=== PATIENT | male | born 1980 | race Caucasian/White ===

== ENCOUNTER 2020-03-08 11:21 | Outpatient (REF) | payer OTHER, SELFPAY ==
[2020-03-08 11:43] LABS: COVID-19 Test Negative (Negative)
== END 2020-03-08 11:22 | disposition home or self-care (01) ==
LOC: HO.LAB 11:21
PROVIDERS: PCP Physician Assistant; Visit Provider Internal Medicine
DX: Z20.828 Contact with and (suspected) exposure to other viral communicable diseases (principal)
CPT/HCPCS: 87635; C9803

== ENCOUNTER 2020-03-12 09:25 | Outpatient (REF) | payer OTHER, SELFPAY ==
[2020-03-12 09:42] LABS: COVID-19 Test Positive (Negative)
== END 2020-03-12 09:26 | disposition home or self-care (01) ==
LOC: HO.LAB 09:25
PROVIDERS: Visit Provider Internal Medicine
DX: Z20.828 Contact with and (suspected) exposure to other viral communicable diseases (principal)
CPT/HCPCS: 87635; C9803

== ENCOUNTER 2020-03-12 13:29 | Outpatient (REF) | payer OTHER, SELFPAY | END 2020-03-12 13:30 | disposition home or self-care (01) | LOC: HO.LAB 13:29 | PROVIDERS: Visit Provider Internal Medicine | DX: Z20.828 Contact with and (suspected) exposure to other viral communicable diseases (principal) | CPT/HCPCS: C9803; U0003 ==

== ENCOUNTER → 2020-03-28 13:10 | Outpatient (BNVA) | payer OTHER, SELFPAY | PROVIDERS: PCP Physician Assistant; Visit Provider Physician Assistant | DX: Z76.89 Persons encountering health services in other specified circumstances (principal) ==

== ENCOUNTER → 2020-03-29 08:15 | Outpatient (BNVA) | payer OTHER, SELFPAY | PROVIDERS: PCP Physician Assistant; Visit Provider Surgery | DX: Z76.89 Persons encountering health services in other specified circumstances (principal) ==

== ENCOUNTER 2020-03-30 08:56 | Outpatient (REF) | payer OTHER, SELFPAY ==
[2020-04-02 09:13] LABS: H Pylori Breath Test NOT DETECTED (NOT DETECTED)
== END 2020-03-30 08:57 | disposition home or self-care (01) ==
LOC: HO.LNP 08:56
PROVIDERS: PCP Physician Assistant; Referring Provider Physician Assistant; Visit Provider Surgery
DX: Z11.0 Encounter for screening for intestinal infectious diseases (principal)
CPT/HCPCS: 83013

== ENCOUNTER → 2020-04-17 08:17 | Outpatient (BNVA) | payer OTHER, SELFPAY | PROVIDERS: PCP Physician Assistant; Visit Provider Dietitian, Registered | DX: Z76.89 Persons encountering health services in other specified circumstances (principal) ==

== ENCOUNTER 2020-04-18 10:20 | Outpatient (REF) | payer OTHER, SELFPAY ==
--- NOTE | 2020-04-18 10:25 | XR_ITS ---
EXAMINATION: XR CHEST CLINICAL INFORMATION: Morbid obesity. COMPARISON: None TECHNIQUE: 2 views of the chest were obtained. FINDINGS: No significant abnormality is noted involving the heart, lungs, mediastinum, bony thorax or soft tissues. XR/XR chest 2V IMPRESSION: No acute cardiopulmonary process.
--- NOTE | 2020-04-18 10:25 | US_ITS ---
EXAMINATION: US COMPLETE ABDOMEN WITH LIVER ELASTOGRAPHY CLINICAL INFORMATION: Morbid obesity secondary to excess calories. COMPARISON: None. TECHNIQUE: Real-time imaging of the abdominal viscera. Noninvasive ultrasound liver fibrosis assessment is performed using Chantelle ElastPQ point quantification shear wave elastography (pSWE) with a 5 MHz transducer. Multiple elastography samples are obtained. FINDINGS: PANCREAS: Visualized portions unremarkable. The tail is obscured by bowel gas shadowing. ABDOMINAL AORTA: Unremarkable. INFERIOR VENA CAVA: Unremarkable. LIVER: Diffuse increased echotexture without focal abnormality. The right lobe measures 19.1 cm in length. The left lobe measures 11.2 cm in length. Shear wave elastography provides a median stiffness of 1.42 m/s (reference: normal median stiffness is 0.81 - 1.22 m/s). The IQR/median stiffness to assess sampling precision is 0.11 (reference: optimal IQR/median stiffness is under 0.3). GALLBLADDER: Unremarkable. COMMON BILE DUCT: Normal in caliber measuring 0.6 cm in diameter. RIGHT KIDNEY: 12.7 cm. Unremarkable. LEFT KIDNEY: 13.7 cm. Unremarkable. SPLEEN: 12.2 cm. Unremarkable. FREE FLUID: None. US/US abdomen comp w elastography IMPRESSION: 1. Hepatic steatosis. 2. Elastography: Fibrosis the stage F2/3: Mild to moderate.
--- NOTE | 2020-04-18 10:25 | FL_ITS ---
EXAMINATION: XR GI SERIES CLINICAL INFORMATION: Obesity COMPARISON: None TECHNIQUE: Upper GI was performed using thin and thick barium and effervescent granules FINDINGS: Esophageal motility is normal. There is a small sliding hiatal hernia. There is mild gastroesophageal reflux. The esophagus is otherwise unremarkable. The stomach and duodenum are normal-appearing. No fold thickening, mass, ulcer or stricture is seen. FLUOROSCOPY TIME: 0.7 minutes DOSE AREA PRODUCT: 9.8 Smith per centimeter squared. 19 saved fluoroscopic images. FL/FL upper GI series IMPRESSION: Small sliding-type hiatal hernia and mild gastroesophageal reflux.
== END 2020-04-18 10:21 | disposition home or self-care (01) ==
LOC: HO.US 10:20
PROVIDERS: PCP Physician Assistant; Visit Provider Surgery
DX: Z01.818 Encounter for other preprocedural examination (principal); E66.01 Morbid (severe) obesity due to excess calories; K21.9 Gastro-esophageal reflux disease without esophagitis
CPT/HCPCS: 71046; 74240; 76705; 76981

== ENCOUNTER → 2020-04-25 08:35 | Outpatient (BNVA) | payer OTHER, SELFPAY | PROVIDERS: PCP Physician Assistant; Visit Provider Surgery | DX: Z76.89 Persons encountering health services in other specified circumstances (principal) ==

== ENCOUNTER → 2020-05-14 08:11 | Outpatient (BNVA) | payer OTHER, SELFPAY | PROVIDERS: PCP Physician Assistant; Visit Provider Dietitian, Registered ==

== ENCOUNTER → 2020-05-16 08:19 | Outpatient (BNVA) | payer OTHER, SELFPAY | PROVIDERS: PCP Physician Assistant; Visit Provider Surgery | DX: Z76.89 Persons encountering health services in other specified circumstances (principal) ==

== ENCOUNTER → 2020-05-29 08:09 | Outpatient (BNVA) | payer OTHER, SELFPAY | PROVIDERS: PCP Physician Assistant; Visit Provider Dietitian, Registered ==

== ENCOUNTER → 2020-06-13 08:14 | Outpatient (BNVA) | payer OTHER, SELFPAY | PROVIDERS: PCP Physician Assistant; Visit Provider Surgery ==

== ENCOUNTER 2021-06-18 06:18 | Outpatient (REF) | payer OTHER, SELFPAY ==
--- NOTE | ~2021-06-18 | XR_ITS ---
EXAMINATION: XR CHEST CLINICAL INFORMATION: R07.89 - Other chest pain COMPARISON: Chest radiographs 04/18/2020 TECHNIQUE: 2 views of the chest were obtained. FINDINGS: The lungs are clear. There is no airspace consolidation, groundglass opacity, or effusion. No pneumothorax or pleural reaction. The costophrenic sulci are clear. The heart is normal in size. The hilar and mediastinal contours are normal. There are degenerative changes again noted thoracic spine. XR/XR chest 2V IMPRESSION: Lungs clear. No acute intrathoracic disease.
[2021-06-18 07:32] LABS: Hematocrit 47.5 % (42.0-52.0); Hemoglobin 15.3 g/dl (14.0-18.0); Mean Corpuscular HGB Conc 32.2 g/dl (31.0-36.0); Mean Corpuscular Hemoglobin 27.5 pg (27.0-33.0); Mean Corpuscular Volume 85.3 fL (80.0-98.0); Mean Platelet Volume 10.2 fL (9.4-12.4); Platelet Count 354 X10*3/uL (160-400); Red Blood Count 5.57 X10*6/uL (4.60-5.80); Red Cell Distribution Width 12.7 % (11.0-16.0)
[2021-06-18 07:34] LABS: Estimated Average Glucose 137 mg/dL; Hemoglobin A1c % 6.4 %
[2021-06-18 08:07] LABS: TSH reflex Free T4 1.93 uIU/mL (0.32-4.0)
[2021-06-18 08:08] LABS: Alanine Aminotransferase 23 U/L (0-40); Albumin Level 4.1 g/dL (3.5-5.0); Alkaline Phosphatase 86 U/L (39-117); Anion Gap 13 (12-20); Aspartate Amino Transferase 17 U/L (5-37); Bilirubin Total 0.6 mg/dL (0.0-1.0); Blood Urea Nitrogen 22 mg/dL (9-16); Calcium 9.6 mg/dL (8.4-10.2); Carbon Dioxide 26 mmol/L (22-29); Chloride 104 mmol/L (96-108); Cholesterol 239 mg/dL; Estimated Glomerular Filt Rate > 60; Glucose Fasting 141 mg/dL (60-99); HDL Cholesterol 38 mg/dL; LDL Cholesterol Calculated 181 mg/dl; Potassium 4.7 mmol/L (3.3-5.1); Sodium 138 mmol/L (135-145); Total Protein 7.6 g/dL (6.5-8.0); Triglycerides 101 mg/dL
[2021-06-18 08:26] LABS: Creatinine Urine 157.89 mg/dL; Microalbum/Creatinine Ratio Ur 97.5 ug/mg cr
== END 2021-06-18 06:19 | disposition home or self-care (01) ==
LOC: HO.LAB 06:18
PROVIDERS: PCP Physician Assistant; Visit Provider Physician Assistant
DX: R07.89 Other chest pain (principal); I10 Essential (primary) hypertension; Z13.1 Encounter for screening for diabetes mellitus; Z13.220 Encounter for screening for lipoid disorders
CPT/HCPCS: 36415; 71046; 80053; 80061; 82043; 83036; 84443; 85027

== ENCOUNTER → 2021-07-17 13:52 | Outpatient (REF) | payer OTHER, SELFPAY | LOC: HO.SL 13:52 | PROVIDERS: PCP Physician Assistant; Visit Provider Physician Assistant | DX: G47.33 Obstructive sleep apnea (adult) (pediatric) (principal); E66.01 Morbid (severe) obesity due to excess calories | CPT/HCPCS: 95806 ==

== ENCOUNTER 2022-11-03 06:47 | Outpatient (REF) | payer OTHER, SELFPAY ==
[2022-11-03 07:25] LABS: Estimated Average Glucose 278 mg/dL; Hemoglobin A1c % 11.3 %
[2022-11-03 07:47] LABS: Alanine Aminotransferase 47 U/L (0-40); Alkaline Phosphatase 93 U/L (39-117); Anion Gap 15 (12-20); Aspartate Amino Transferase 26 U/L (5-37); Bilirubin Total 0.7 mg/dL (0.0-1.0); Blood Urea Nitrogen 17 mg/dL (9-16); Calcium 9.3 mg/dL (8.4-10.2); Carbon Dioxide 24 mmol/L (22-29); Chloride 103 mmol/L (96-108); Estimated Glomerular Filt Rate > 60; Glucose Fasting 326 mg/dL (60-99); Potassium 4.5 mmol/L (3.3-5.1); Sodium 137 mmol/L (135-145); Total Protein 7.6 g/dL (6.5-8.0)
== END 2022-11-03 06:48 | disposition home or self-care (01) ==
LOC: HO.LAB 06:47
PROVIDERS: PCP Physician Assistant; Visit Provider Physician Assistant
DX: R73.09 Other abnormal glucose (principal)
CPT/HCPCS: 36415; 80053; 83036

== ENCOUNTER 2022-11-13 11:06 | Outpatient (AMB) | payer OTHER, SELFPAY ==
[2022-11-13 11:08] VITALS: BP 136/82; PULSE 81; O2SAT 98; BMI 43.0
--- NOTE | 2022-11-13 11:08 | MHC.PC.OV ---
Vital Signs 11/13/22 11:08 Height 6 ft 1 in Weight 326 lb BMI 43.0 BP 136/82 Blood Pressure Location Lt brachial Position Sitting Pulse 81 Pulse Source Pulse Oximeter Pulse Oximetry (%) 98 Oxygen Delivery Method Room Air Intake Visit Reasons: Follow up on labs Allergies hydrochlorothiazide Adverse Reaction (Intermediate, Verified 11/13/22 11:09) Dizziness Tobacco use date assessed: 11/13/22 Dental Screening Dental Screen Date: 11/13/22 Did you have a dental visit in the last 12 months?: Yes Did you have a dental problem in the last 6 months where you did not have access to dental care?: No Was dental information given to patient?: Patient has dentist HPI Follow up on labs HPI Details Patient is a 42-year-old male here today for follow-up visit. Patient's past medical history significant for obesity, borderline high cholesterol, hyperlipidemia . Patient has been experiencing headaches, blurred vision, polydipsia and polyuria. Was sent for labs and noted hyperglycemia on A1c above 11. Has been restarted on metformin a 1000 b.i.d.. He reports since starting higher dose metformin a 1000 b.i.d. is 30 vision his resolved and is polyuria polydipsia also has resolved. He reports having cramps in his calves which he is concerned about. Also reviewed previous labs and noted a elevated total cholesterol thus will recheck fasting lipid panel and consider statin therapy if LDL above 100. .. Hypertension: Blood pressure acceptable today in office. Was on lisinopril 20 mg in the past though was experiencing hypo tension and dizziness. Reduce his dose down to 10 mg though has unfortunately stopped taking the medication altogether. Advised to restart lisinopril 5 mg for renal protection. [facility] Medical History Morbid obesity Surgical History No pertinent past surgical history Family History Father Hyperlipidemia Mother Hypertension Hyperlipidemia Mother Hypertension Hyperlipidemia Son No problems noted. Daughter No problems noted. Daughter No problems noted. Daughter No problems noted. 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 1. Little interest or pleasure in doing things: not at all 2. Feeling down, depressed, or hopeless: not at all 3. Trouble falling or staying asleep, or sleeping too much: not at all 4. Feeling tired or having little energy: not at all 5. Poor appetite or overeating: not at all 6. Feeling bad about yourself - or that you are a failure or have let yourself or your family down: not at all 7. Trouble concentrating on things, such as reading the newspaper or watching television: not at all 8. Moving or speaking so slowly that other people could have noticed. Or the opposite - being so fidgety or restless that you have been moving around a lot more than usual: not at all 9. Thoughts that you would be better off or of hurting yourself in some way: not at all Total score: 0 Depression Screening Interpretation: Negative Source: Developed by Drs. Ivan Gray, Cassidy Nolan, Redd Issa and colleagues, with an educational jak from [employer]. Thrive Questionnaire Date Thrive assessed: 11/13/22 I am a: Patient What is your living situation today?: I have a steady place to live Within the past 12 months, did the food you bought not last and you didn't have the money to get more?: Never true Within the past 12 months, did you worry whether your food would run out before you got money to buy more?: Never true Do you have trouble paying for medicines?: No Do you have trouble getting transportation to medical appointments?: No Do you have trouble paying your heating and electricity bill?: No Do you have trouble taking care of your child, family member or friend?: No Do you have trouble with day-to-day activities such as bathing, preparing meals, shopping, managing finances, etc.?: No Are you currently unemployed and looking for a job?: No Are you interested in more education?: No Currently or been in a relationship where the following occur: no concerns reported AUDIT C Alcohol Use Questionnaire (AUDIT-C) 1. How often do you have a drink containing alcohol?: Never 3. How often do you have six or more drinks on one occasion?: Never Total Score: 0 JELANI-7 AMB Questionnaire JELANI-7 Date JELANI - 7 assessed: 11/13/22 Feeling nervous, anxious, or on edge: 0 = Not at all Not being able to stop or control worryin = Not at all Worrying too much about different things: 0 = Not at all Trouble relaxin = Not at all Being so restless that it is hard to sit still: 0 = Not at all Becoming easily annoyed or irritable: 0 = Not at all Feeling afraid as if something awful might happen: 0 = Not at all Total JELANI-7 score (0-4 normal; 5-9 mild; 10-14 moderate; 15-21 severe): 0 Source: Developed by Drs. Ivan Gray, Cassidy Nolan, Redd Issa and colleagues, with an educational jak from [employer]. JELANI-7 Assessment Billing JELANI-7 Assessment Tool: JELANI-7 Assessment 37289 Review of Systems Const Denies headache(s) Eyes Denies loss of vision ENT Denies vertigo, Denies dizziness, Denies headache(s) and Denies sore throat Card Denies chest pain, Denies leg edema and Denies lightheadedness Resp Denies cough, Denies hemoptysis and Denies wheezing GI Denies abdominal pain, Denies melena, Denies constipation, Denies diarrhea and Denies vomiting Denies dysuria, Denies urinary frequency and Denies urinary urgency Musc Details: + myalgias and calfs and thighs Denies arthralgias, Denies joint swelling, Denies numbness and Denies tingling Neuro Denies Abnormal speech present, Denies behavioral changes, Denies vertigo, Denies dizziness, Denies headache(s), Denies loss of vision, Denies memory loss, Denies numbness and Denies tingling Psych Denies anxiety, Denies behavioral changes, Denies depression, Denies memory loss and Denies panic attacks Trey/Lymph Denies easy bleeding and Denies easy bruising Aller/Immun Denies wheezing Physical exam (Primary Care) Vital Signs: Last Vital Signs Pulse 81 11/13/22 11:08 BP 136/82 11/13/22 11:08 Pulse Ox 98 11/13/22 11:08 Oxygen Delivery Method Room Air 11/13/22 11:08 BMI result Body Mass Index 43.0 BMI Assessment/Plan discussion: High Tobacco/Smoking Status: Tobacco use Status Tobacco use date assessed 11/13/22 11/13/22 11:12 Patient Tobacco Use Status Never used Tobacco 11/13/22 11:12 e-Cigarette/Vaping Use Never Used 11/13/22 11:12 PHQ-9: PHQ-9 Score PHQ-9: Total score 0 11/13/22 11:20 Depression Screening Interpretation: Negative Thrive Assessment: Date of Thrive Assessment Date Thrive assessed 11/13/22 11/13/22 11:12 Currently or been in a relationship where the following occur: no concerns reported Const Other: Morbidly obese General: no acute distress, alert and awake Nutritional Appearance: well nourished Orientation/consciousness: oriented to person, oriented to place and oriented to time HENMT Ears: TM's normal bilaterally General nose exam: Normal nasal mucous membranes and turbinates present Eyes Conjunctivae: conjunctivae normal Sclerae: sclerae normal Pupils: Equal, round and reactive pupils present Neck Neck: Yes no lymphadenopathy and Yes no JVD Thyroid: Thyroid normal Carotids: no bruits Resp Effort & Inspection: normal respiratory effort and not tachypneic Auscultation: no crackles, no rales, no rhonchi and no wheezes Cardio Rate: regular rate Rhythm: regular rhythm Heart sounds: no murmurs and normal S1 and S2 GI Palpation (GI): Soft to palpation, nontender, no hepatomegaly and no splenomegaly Auscultation: normal bowel sounds Skin General skin exam: no rashes or lesions noted and dry skin Neuro General: oriented to person, oriented to place and oriented to time Cranial nerves: Yes Equal, round and reactive pupils present Speech: No Abnormal speech present Gait exam (Neuro): Normal gait present Motor exam (neuro): no tremor noted Extrem Right upper extremity: full ROM Left upper extremity: full ROM Right lower extremity: full ROM; no edema Left lower extremity: full ROM; no edema Psych Mental Status: mental status grossly normal Speech and movement: Normal speech and movement present Affect: normal affect Attitude: cooperative Thought process: Normal thought process present Assessment and Plan Assessment & Plan (1) DMII (diabetes mellitus, type 2): Code(s): E11.9 - Type 2 diabetes mellitus without complications Qualifiers: Diabetes mellitus complication status: with hyperglycemia Diabetes mellitus correction insulin use: without correction use Qualified Code(s): E11.65 - Type 2 diabetes mellitus with hyperglycemia Plan: Patient has uncontrolled type 2 diabetes. Recently increased his metformin to a 1000 b.i.d.. For now will hold off on injectable therapy or insulin. He will work extensively on lifestyle modifications to help manage his diabetes. He is willing to talk with a dietitian about diabetic diet. Goal A1c is to be below 7.0 Will refer to Ophthalmology for diabetic eye exam (2) Myalgia: Code(s): M79.10 - Myalgia, unspecified site Plan: Likely related to his diabetes. Will supply him with magnesium oxide to use at night for muscle cramps in legs. (3) HLD (hyperlipidemia): Code(s): E78.5 - Hyperlipidemia, unspecified Qualifiers: Hyperlipidemia type: mixed hyperlipidemia Qualified Code(s): E78.2 - Mixed hyperlipidemia Plan: Most recent fasting lipid panel showing elevated total cholesterol. Will continue to work on lifestyle modifications to reduce his high cholesterol foods. Again will try to set him up with dietitian. Will recheck lipid panel before next visit in if LDL above 100 will strongly consider starting statin therapy. (4) JELANI (generalized anxiety disorder): Code(s): F41.1 - Generalized anxiety disorder Plan: Patient does report having a lot of stress and anxiety which he attributes as a manifestation to his chest pain and neck pain. He is interested in speaking with a mental health therapist about nonpharmacological ways to reduce his stress and anxiety. Will refer to counseling (5) Morbid obesity: Code(s): E66.01 - Morbid (severe) obesity due to excess calories Plan: Patient does understand his BMI is well over 40 and will continue working on being more physically active and adapting to better eating habits to reduce his weight. Orders: Orders Comprehensive Carbon. Panel Fast Today R73.09 - Other abnormal glucose Complete Blood Count Auto Diff Today R73.09 - Other abnormal glucose Lipid Panel Today E78.2 - Mixed hyperlipidemia Magnesium Today E11.65 - Type 2 diabetes mellitus with hyperglycemia Complete Blood Count no Diff Today E11.65 - Type 2 diabetes mellitus with hyperglycemia Referrals Nutrition/Dietitian Referral E11.65 - Type 2 diabetes mellitus with hyperglycemia Counseling Referral F41.1 - Generalized anxiety disorder Ophthalmology Referral E11.65 - Type 2 diabetes mellitus with hyperglycemia Medications: New magnesium oxide 400 mg PO DAILY 30 days 30 tabs 0RF M79.10 - Myalgia, unspecified site lisinopril 5 mg PO DAILY 90 days 90 tabs 1RF I10 - Essential (primary) hypertension Discontinued atomoxetine (Strattera) Discontinued Reason: Doctor's Order 40 mg PO DAILY 14 days 14 caps 0RF F98.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 with onset usually occurring in childhood and adolescence atomoxetine (Strattera) Discontinued Reason: Doctor's Order 80 mg PO DAILY 30 days 30 caps 0RF F98.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 with onset usually occurring in childhood and adolescence metformin Discontinued Reason: Doctor's Order 500 mg PO DAILY 30 days 30 tabs 2RF R73.09 - Other abnormal glucose lisinopril Discontinued Reason: Doctor's Order 10 mg PO DAILY 30 tabs 2RF I10 - Essential (primary) hypertension Coding Level of Care Code Est Pt Level 4 (85648) Diagnoses DMII (diabetes mellitus, type 2) E11.65 Diabetes mellitus complication status: with hyperglycemia Diabetes mellitus correction insulin use: without correction use Myalgia M79.10 HLD (hyperlipidemia) E78.2 Hyperlipidemia type: mixed hyperlipidemia JELANI (generalized anxiety disorder) F41.1 Morbid obesity E66.01 Additional Codes JELANI-7 Assessment Billing - JELANI-7 Assessment Tool: JELANI-7 Assessment 03961 ([id number])
== END 2022-11-13 11:49 | disposition home or self-care (01) ==
PROVIDERS: PCP Physician Assistant; Visit Provider Physician Assistant
DX: E11.65 Type 2 diabetes mellitus with hyperglycemia (principal); E66.01 Morbid (severe) obesity due to excess calories; Z68.41 Body mass index [BMI] 40.0-44.9, adult; M79.10 Myalgia, unspecified site; E78.2 Mixed hyperlipidemia; F41.1 Generalized anxiety disorder
CPT/HCPCS: 99214

== ENCOUNTER 2022-11-25 09:23 | Outpatient (AMB) | payer OTHER, SELFPAY ==
--- NOTE | 2022-11-25 09:54 | MHC.AMNUTRGE ---
Intake VS Expanded 11/25/22 09:55 11/25/22 09:58 Height 6 ft 1 in 6 ft 1 in Weight 324 lb 11.854 oz 325 lb BMI 42.8 42.9 Intake Visit Reasons: DM Allergies hydrochlorothiazide Adverse Reaction (Intermediate, Verified 11/13/22 11:09) Dizziness HPI Nutrition Presentation Details Pt presents for MNT for T2DM Patient reports taking metformin a 1000 mg twice a day Patient reports working on diet modifications, reports trying 12 hour fast for 2 weeks however reports challenges with reducing portions once fasting is over or if including foods before the fasting is over. Food frequency questionnaire Fruits: 2-3 per day Protein: 10-12 oz per day including a via radio protein (beef, fish, eggs, poultry and processes meats) eating out 0 to once per week Dairy: 3 to 4 times a day Vegetables: 1-2 servings per day Starches: Greater than 20 servings per day Beverages: Reports drinking water and choosing lower sugar beverages about 60-65 oz per day Fried foods 0 to once per week EFV-Yuyzfzp-Jd.Jeor Equation Height 6 ft 1 in Weight 325 lb Resting Metabolic Rate 2425.02 Calculated Activity Level Mild Activity Calories Needed to Maintain Weight 3334.40 Diagnosis Nutrition problem #1 food nutri know defi As related to (etiology) #1 diagnosis As evidenced by (sign/symptom) #1 high BMI (42.9 on 11/25/22) Most Recent Diabetes Results: Microalb/Creat Ratio 97.5 ug/mg cr 06/18/21 Cholesterol 239 mg/dL 06/18/21 HDL Cholesterol 38 mg/dL 06/18/21 Triglycerides 101 mg/dL 06/18/21 Creatinine 1.26 mg/dL (0.5-1.4) 11/03/22 Blood Urea Nitrogen 17 mg/dL (9-16) H 11/03/22 Sodium 137 mmol/L (135-145) 11/03/22 Potassium 4.5 mmol/L (3.3-5.1) 11/03/22 Chloride 103 mmol/L (96-108) 11/03/22 Carbon Dioxide 24 mmol/L (22-29) 11/03/22 Calcium 9.3 mg/dL (8.4-10.2) 11/03/22 AST 26 U/L (5-37) 11/03/22 ALT 47 U/L (0-40) H 11/03/22 Total Protein 7.6 g/dL (6.5-8.0) 11/03/22 Albumin 4.0 g/dL (3.5-5.0) 11/03/22 [facility] Medical History Morbid obesity Surgical History No pertinent past surgical history Family History Father Hyperlipidemia Mother Hypertension Hyperlipidemia Mother Hypertension Hyperlipidemia Son No problems noted. Daughter No problems noted. Daughter No problems noted. Daughter No problems noted. 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 Cognitive needs: No Hearing needs: No Vision needs: No Assessment & Plan Assessment & Plan (1) DMII (diabetes mellitus, type 2): Code(s): E11.9 - Type 2 diabetes mellitus without complications Qualifiers: Diabetes mellitus terminal manager insulin use: without mcfp use Diabetes mellitus complication status: with hyperglycemia Qualified Code(s): E11.65 - Type 2 diabetes mellitus with hyperglycemia (2) Morbid obesity: Code(s): E66.01 - Morbid (severe) obesity due to excess calories Plan: used wt: 148 kg Est kcal needs as per MSJ: 3300 (40% carb, 30% protein/fat) Est fluid needs as per 25-30 ml/d: 3693 Est prot per day as per 1 g/kg bw: 148 Recommend fiber intake : 8-10 g per day and gradually increase to 25-28 g per day for women and 35-38 g for men or as tolerated Recommend sodium intake per day : less than 1500 mg less than 2000 mg Educated patient on: ( R = reviewed V = verbalizes understanding N/R = needs review N/A = not applicable Food sources of carbohydrate, adequate serving sizes and its role in various health conditions: R Differences between complex carbohydrates a simple carbohydrates, role of fiber in diet: R Differences between types of fats and role in diet (mono on saturated fat fatty acids, saturated fatty acids, trans fats): R Food sources of sodium in salt and healthy modifications for heart health in kidney health: R Vitamins and minerals: R Healthy plate method concept: R Physical activity: Benefits a precaution: R Hypoglycemia protocol (rule of 15): R Dietary prevention of Hyperglycemia: R Patient Instructions: Practice mindful eating Reduce sugar in beverages Work on reducing your carbohydrates to 80 g at mealtime following healthy plate method Coding Level of Care Code Nutr Indiv Intake (90313) Diagnoses DMII (diabetes mellitus, type 2) E11.65 Diabetes mellitus terminal manager insulin use: without terminal manager use Diabetes mellitus complication status: with hyperglycemia Morbid obesity E66.01 Time Spent (min) 30
[2022-11-25 09:55] VITALS: BMI 42.8
[2022-12-01 11:30] VITALS: BMI 42.9
== END 2022-11-25 10:31 | disposition home or self-care (01) ==
PROVIDERS: PCP Physician Assistant; Visit Provider Dietitian, Registered
DX: E11.65 Type 2 diabetes mellitus with hyperglycemia (principal); E66.01 Morbid (severe) obesity due to excess calories

== ENCOUNTER → 2022-11-25 09:23 | Outpatient (BNVA) | payer OTHER, SELFPAY | PROVIDERS: PCP Physician Assistant; Visit Provider Dietitian, Registered | DX: E11.65 Type 2 diabetes mellitus with hyperglycemia (principal); E66.01 Morbid (severe) obesity due to excess calories; Z68.41 Body mass index [BMI] 40.0-44.9, adult; Z79.84 Long term (current) use of oral hypoglycemic drugs; Z71.3 Dietary counseling and surveillance | CPT/HCPCS: 97802 ==

== ENCOUNTER 2022-12-15 06:15 | Outpatient (REF) | payer OTHER, SELFPAY ==
[2022-12-15 06:37] LABS: MANUAL DIFF FLAG NO
[2022-12-15 08:21] LABS: Basophils Percent Auto 0.4 % (0-2); Eosinophils Absolute Auto 0.1 X10*3/uL (0.0-0.4); Eosinophils Percent Auto 1.4 % (0-4); Hematocrit 43.4 % (42.0-52.0); Imm Gran Abs Auto 0.02 X10*3/uL (0.00-0.03); Imm Gran Pct Auto 0.3 % (0.0-0.4); Lymphocytes Absolute Auto 2.1 X10*3/uL (1.2-4.9); Lymphocytes Percent Auto 27.4 % (20-40); Mean Corpuscular HGB Conc 32.3 g/dl (31.0-36.0); Mean Corpuscular Hemoglobin 27.6 pg (27.0-33.0); Mean Corpuscular Volume 85.6 fL (80.0-98.0); Mean Platelet Volume 10.9 fL (9.4-12.4); Monocytes Absolute Auto 0.6 X10*3/uL (0.1-1.2); Monocytes Percent Auto 7.2 % (2-11); Neutrophils Absolute Auto 4.9 x10*3/uL (2.0-8.3); Neutrophils Percent Auto 63.3 % (45-73); Platelet Count 332 X10*3/uL (160-400); Red Blood Count 5.07 X10*6/uL (4.60-5.80); Red Cell Distribution Width 12.7 % (11.0-16.0); White Blood Count 7.8 X10*3/uL (4.8-10.8)
[2022-12-15 09:01] LABS: Alanine Aminotransferase 22 U/L (0-40); Albumin Level 3.9 g/dL (3.5-5.0); Alkaline Phosphatase 76 U/L (39-117); Anion Gap 12 (12-20); Aspartate Amino Transferase 14 U/L (5-37); Bilirubin Total 0.4 mg/dL (0.0-1.0); Blood Urea Nitrogen 20 mg/dL (9-16); Calcium 9.4 mg/dL (8.4-10.2); Carbon Dioxide 23 mmol/L (22-29); Chloride 110 mmol/L (96-108); Cholesterol 198 mg/dL (<200); Estimated Glomerular Filt Rate > 60; Glucose Fasting 111 mg/dL (60-99); HDL Cholesterol 33 mg/dL (>40); LDL Cholesterol Calculated 149 mg/dL (<100); Magnesium 2.2 mg/dL (1.6-2.6); Potassium 4.6 mmol/L (3.3-5.1); Sodium 140 mmol/L (135-145); Total Protein 7.3 g/dL (6.5-8.0); Triglycerides 81 mg/dL (<150)
== END 2022-12-15 06:16 | disposition home or self-care (01) ==
LOC: HO.LAB 06:15
PROVIDERS: PCP Physician Assistant; Visit Provider Physician Assistant
DX: E11.65 Type 2 diabetes mellitus with hyperglycemia (principal); E78.2 Mixed hyperlipidemia
CPT/HCPCS: 36415; 80053; 80061; 83735; 85025; 85027

== ENCOUNTER 2023-01-28 11:36 | Outpatient (AMB) | payer OTHER, SELFPAY ==
--- NOTE | 2023-01-28 11:38 | MHC.PC.OV ---
Vital Signs 01/28/23 11:39 Height 6 ft 1 in Weight 310 lb BMI 40.9 BP 110/74 Blood Pressure Location Lt brachial Position Sitting Respiration 17 Pulse 59 Pulse Source Pulse Oximeter Pulse Oximetry (%) 98 Oxygen Delivery Method Room Air Intake Visit Reasons: discuss lab results Claims Adjuster Required: No Accompanied by: Self / Same As Patient Allergies hydrochlorothiazide Adverse Reaction (Intermediate, Verified 01/28/23 12:00) Dizziness Medication List - Last Reconciled 01/28/23 by Demar Guzman PA-C atorvastatin 10 mg PO BEDTIME 90 days ibuprofen 600 mg PO Q8H PRN lisinopril 5 mg PO DAILY 90 days metformin 1,000 mg PO BID 30 days Tobacco use date assessed: 11/13/22 HPI discuss lab results HPI Details Patient is a 42-year-old male here today for follow-up visit. Patient's past medical history significant for obesity, borderline high cholesterol, hyperlipidemia . Type 2 diabetes: . Was sent for labs and noted hyperglycemia on A1c above 11. Has been restarted on metformin a 1000 b.i.d.. Has been making lifestyle changes in his diet. Has been able to lose 15 lb over the last 2 months. PLAN: Reduce his metformin to 500 mg daily and start OZempic weekly injection for added benefit of weight loss. Hyperlipidemia: Most recent lipid panel showing elevated LDL for his cardiovascular risk. Has been started on statin therapy without any side effect. Will recheck fasting lipid panel with goal LDL to be below 100 .. Hypertension: Blood pressure acceptable today in office. Continues on lisinopril 5 mg with good affect on his blood pressure.. [facility] Medical History Morbid obesity Surgical History No pertinent past surgical history Family History Father Hyperlipidemia Mother Hypertension Hyperlipidemia Mother Hypertension Hyperlipidemia Son No problems noted. Daughter No problems noted. Daughter No problems noted. Daughter No problems noted. 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 Ivan Gray, Cassidy Nolan, Redd Issa and colleagues, with an educational jak from [employer]. Review of Systems Const Denies headache(s) Eyes Denies loss of vision ENT Denies vertigo, Denies dizziness, Denies headache(s) and Denies sore throat Card Denies chest pain, Denies leg edema and Denies lightheadedness Resp Denies cough, Denies hemoptysis and Denies wheezing GI Denies abdominal pain, Denies melena, Denies constipation, Denies diarrhea and Denies vomiting Denies dysuria, Denies urinary frequency and Denies urinary urgency Musc Denies arthralgias, Denies joint swelling, Denies numbness and Denies tingling Neuro Denies Abnormal speech present, Denies behavioral changes, Denies vertigo, Denies dizziness, Denies headache(s), Denies loss of vision, Denies memory loss, Denies numbness and Denies tingling Psych Denies anxiety, Denies behavioral changes, Denies depression, Denies memory loss and Denies panic attacks Trey/Lymph Denies easy bleeding and Denies easy bruising Aller/Immun Denies wheezing Physical exam (Primary Care) Vital Signs: Last Vital Signs Pulse 59 01/28/23 11:39 Resp 17 01/28/23 11:39 BP 110/74 01/28/23 11:39 Pulse Ox 98 01/28/23 11:39 Oxygen Delivery Method Room Air 01/28/23 11:39 BMI result Body Mass Index 40.9 BMI Assessment/Plan discussion: High Tobacco/Smoking Status: Tobacco use Status Tobacco use date assessed 11/13/22 01/28/23 11:38 Patient Tobacco Use Status Never used Tobacco 01/28/23 11:38 e-Cigarette/Vaping Use Never Used 01/28/23 11:38 Thrive Assessment: Date of Thrive Assessment Date Thrive assessed 11/13/22 01/28/23 11:38 Const Other: Obese though weight loss noted General: healthy appearing, no acute distress, alert and awake Nutritional Appearance: well nourished Orientation/consciousness: oriented to person, oriented to place and oriented to time HENMT Ears: TM's normal bilaterally General nose exam: Normal nasal mucous membranes and turbinates present Eyes Conjunctivae: conjunctivae normal Sclerae: sclerae normal Pupils: Equal, round and reactive pupils present Neck Neck: Yes no lymphadenopathy and Yes no JVD Thyroid: Thyroid normal Carotids: no bruits Resp Effort & Inspection: normal respiratory effort and not tachypneic Auscultation: no crackles, no rales, no rhonchi and no wheezes Cardio Rate: regular rate Rhythm: regular rhythm Heart sounds: no murmurs and normal S1 and S2 GI Palpation (GI): Soft to palpation, nontender, no hepatomegaly and no splenomegaly Auscultation: normal bowel sounds Skin General skin exam: no rashes or lesions noted and dry skin Neuro General: oriented to person, oriented to place and oriented to time Cranial nerves: Yes Equal, round and reactive pupils present Speech: No Abnormal speech present Gait exam (Neuro): Normal gait present Motor exam (neuro): no tremor noted Extrem Right upper extremity: full ROM Left upper extremity: full ROM Right lower extremity: full ROM; no edema Left lower extremity: full ROM; no edema Psych Mental Status: mental status grossly normal Speech and movement: Normal speech and movement present Affect: normal affect Attitude: cooperative Thought process: Normal thought process present Results AMB Hemoglobin A1c AMB Hemoglobin A1c 7.3 % Last Edit by ROCKY Chao on 01/28/23 12:03 Results Reviewed Results Reviewed: Laboratory Last Values Hgb A1c (Clinic) 7.3 % (4.0-6.0) H 01/28/23 11:55 Assessment and Plan Assessment & Plan (1) DMII (diabetes mellitus, type 2): Code(s): E11.9 - Type 2 diabetes mellitus without complications Qualifiers: Diabetes mellitus complication status: with hyperglycemia Diabetes mellitus watermaster insulin use: without watermaster use Qualified Code(s): E11.65 - Type 2 diabetes mellitus with hyperglycemia Plan: Patient has uncontrolled type 2 diabetes. Recently increased his metformin to a 1000 b.i.d.. A1c today 7.3 from 11. Has been working extensively on diabetic diet has been able to reduce his weight significantly. He is willing to start Ozempic for added benefit of weight loss. Will reduce his metformin dose to 500 daily. (2) HLD (hyperlipidemia): Code(s): E78.5 - Hyperlipidemia, unspecified Qualifiers: Hyperlipidemia type: mixed hyperlipidemia Qualified Code(s): E78.2 - Mixed hyperlipidemia Plan: Has started statin therapy without noted side effect. Goal LDL to be below 100 (3) Morbid obesity: Code(s): E66.01 - Morbid (severe) obesity due to excess calories Plan: Have noted weight loss since last office visit.. Patient does understand his BMI is well over 40 and will continue working on being more physically active and adapting to better eating habits to reduce his weight. Orders: Orders Comprehensive [place]. Panel Fast Today E11.65 - Type 2 diabetes mellitus with hyperglycemia Complete Blood Count no Diff Today E11.65 - Type 2 diabetes mellitus with hyperglycemia AMB Hemoglobin A1c Today E11.9 - Type 2 diabetes mellitus without complications Lipid Panel Today E78.2 - Mixed hyperlipidemia Hemoglobin A1c 3 Months E11.65 - Type 2 diabetes mellitus with hyperglycemia Medications: New semaglutide (Ozempic) for 4 weeks 0.25 mg (0.368 mL) subcut QWEEK 4 weeks 3 mL 1RF E11.65 - Type 2 diabetes mellitus with hyperglycemia Coding Level of Care Code Est Pt Level 4 (41395) Diagnoses Type 2 diabetes mellitus with hyperglycemia, without long-term current use of insulin E11.65 Diabetes mellitus complication status: with hyperglycemia Diabetes mellitus watermaster insulin use: without group home use Mixed hyperlipidemia E78.2 Hyperlipidemia type: mixed hyperlipidemia Morbid obesity E66.01
[2023-01-28 11:39] VITALS: BP 110/74; PULSE 59; RESP 17; O2SAT 98; BMI 40.9
== END 2023-01-28 12:18 | disposition home or self-care (01) ==
PROVIDERS: PCP Physician Assistant; Visit Provider Physician Assistant
DX: E11.65 Type 2 diabetes mellitus with hyperglycemia (principal); E66.01 Morbid (severe) obesity due to excess calories; E11.9 Type 2 diabetes mellitus without complications; Z68.41 Body mass index [BMI] 40.0-44.9, adult; E78.2 Mixed hyperlipidemia
CPT/HCPCS: 83036; 99214

== ENCOUNTER 2023-04-29 06:05 | Outpatient (REF) | payer OTHER, SELFPAY ==
[2023-04-29 07:39] LABS: Hemoglobin 14.7 g/dl (14.0-18.0); Mean Corpuscular HGB Conc 32.7 g/dl (31.0-36.0); Mean Corpuscular Hemoglobin 27.5 pg (27.0-33.0); Mean Corpuscular Volume 84.1 fL (80.0-98.0); Mean Platelet Volume 10.4 fL (9.4-12.4); Platelet Count 277 X10*3/uL (160-400); Red Blood Count 5.35 X10*6/uL (4.60-5.80); Red Cell Distribution Width 13.1 % (11.0-16.0); White Blood Count 7.8 X10*3/uL (4.8-10.8)
[2023-04-29 07:47] LABS: Estimated Average Glucose 111 mg/dL; Hemoglobin A1c % 5.5 % (<6.0)
[2023-04-29 08:35] LABS: Alanine Aminotransferase 15 U/L (0-40); Alkaline Phosphatase 73 U/L (39-117); Anion Gap 13 (12-20); Aspartate Amino Transferase 14 U/L (5-37); Bilirubin Total 0.4 mg/dL (0.0-1.0); Blood Urea Nitrogen 20 mg/dL (9-16); Calcium 9.3 mg/dL (8.4-10.2); Carbon Dioxide 22 mmol/L (22-29); Chloride 109 mmol/L (96-108); Cholesterol 168 mg/dL (<200); Estimated Glomerular Filt Rate > 60; Glucose Fasting 96 mg/dL (60-99); HDL Cholesterol 42 mg/dL (>40); LDL Cholesterol Calculated 116 mg/dL (<100); Potassium 4.1 mmol/L (3.3-5.1); Sodium 140 mmol/L (135-145); Total Protein 7.6 g/dL (6.5-8.0); Triglycerides 51 mg/dL (<150)
== END 2023-04-29 06:06 | disposition home or self-care (01) ==
LOC: HO.LAB 06:05
PROVIDERS: PCP Physician Assistant; Visit Provider Physician Assistant
DX: E11.65 Type 2 diabetes mellitus with hyperglycemia (principal); E78.2 Mixed hyperlipidemia
CPT/HCPCS: 36415; 80053; 80061; 83036; 85027

== ENCOUNTER 2023-04-30 10:58 | Outpatient (AMB) | payer OTHER, SELFPAY ==
[2023-04-30 11:36] VITALS: BP 122/80; PULSE 70; RESP 17; O2SAT 97; BMI 40.3
--- NOTE | 2023-04-30 11:36 | MHC.PC.OV ---
Vital Signs 04/30/23 11:36 Height 6 ft 1 in Weight 305 lb 6 oz BMI 40.3 BP 122/80 Blood Pressure Location Lt brachial Position Sitting Respiration 17 Pulse 70 Pulse Source Pulse Oximeter Pulse Oximetry (%) 97 Oxygen Delivery Method Room Air Intake Visit Reasons: f/u DMII Intake Note: Patient is here to follow up on DMII. Range Management Specialist Required: No Accompanied by: Self / Same As Patient Allergies hydrochlorothiazide Adverse Reaction (Intermediate, Verified 04/30/23 11:43) Dizziness Medication List - Last Reconciled 04/30/23 by Demar Guzman PA-C atorvastatin 10 mg PO BEDTIME 90 days ibuprofen 600 mg PO Q8H PRN lisinopril 5 mg PO DAILY 90 days metformin 1,000 mg PO BID 30 days semaglutide (Ozempic) 0.5 mg (0.736 mL) subcut QWEEK 4 weeks Tobacco use date assessed: 04/30/23 Dental Screening Dental Screen Date: 04/30/23 Did you have a dental visit in the last 12 months?: Yes Did you have a dental problem in the last 6 months where you did not have access to dental care?: No Was dental information given to patient?: Patient has dentist HPI f/u DMII HPI Details Patient is a 43-year-old male here today for follow-up visit. Patient's past medical history significant for obesity, borderline high cholesterol, hyperlipidemia . Concern--> did have a rash or his chin and bottom lip that appear as bumps and crusted over yellow. Clinically seem to be impetigo. Has nearly resolved Type 2 diabetes: At last visit we discussed starting GLP 1. Diabetes is much better controlled. Has lost weight. Does report some dietary indiscretion over the holidays.x. He has been making lifestyle changes more physically active. Now A1c of 5.5 from 7.3. Hyperlipidemia: Most recent lipid panel showing much improved total cholesterol and LDL. Will continue on statin therapy. .. Hypertension: Blood pressure acceptable today in office. Continues on lisinopril 5 mg with good affect on his blood pressure.. Laboratory Tests 11/03/22 12/15/22 01/28/23 06:54 06:36 11:55 RBC Fasting Glucose 326 H 111 H Hgb A1c (Clinic) 7.3 H Hemoglobin A1c % 11.3 Cholesterol LDL Cholesterol, C alc 149 H 04/29/23 04/29/23 06:14 06:14 RBC 5.35 Fasting Glucose 96 Hgb A1c (Clinic) Hemoglobin A1c % 5.5 Cholesterol 168 LDL Cholesterol, C alc 116 H [facility] Medical History Morbid obesity Surgical History No pertinent past surgical history Family History Father Hyperlipidemia Mother Hypertension Hyperlipidemia Mother Hypertension Hyperlipidemia Son No problems noted. Daughter No problems noted. Daughter No problems noted. Daughter No problems noted. 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 1. Little interest or pleasure in doing things: not at all 2. Feeling down, depressed, or hopeless: not at all 3. Trouble falling or staying asleep, or sleeping too much: not at all 4. Feeling tired or having little energy: not at all 5. Poor appetite or overeating: not at all 6. Feeling bad about yourself - or that you are a failure or have let yourself or your family down: not at all 7. Trouble concentrating on things, such as reading the newspaper or watching television: not at all 8. Moving or speaking so slowly that other people could have noticed. Or the opposite - being so fidgety or restless that you have been moving around a lot more than usual: not at all 9. Thoughts that you would be better off or of hurting yourself in some way: not at all Total score: 0 Depression Screening Interpretation: Negative Depression Screening Done: Yes 74779 - PHQ-9 Billing: Yes Source: Developed by Cassidy BeardW. Ovidio, Redd Issa and colleagues, with an educational jak from [employer]. Thrive Questionnaire Date Thrive assessed: 04/30/23 I am a: Patient What is your living situation today?: I have a steady place to live Within the past 12 months, did the food you bought not last and you didn't have the money to get more?: Never true Within the past 12 months, did you worry whether your food would run out before you got money to buy more?: Never true Do you have trouble paying for medicines?: No Do you have trouble getting transportation to medical appointments?: No Do you have trouble paying your heating and electricity bill?: No Do you have trouble taking care of your child, family member or friend?: No Do you have trouble with day-to-day activities such as bathing, preparing meals, shopping, managing finances, etc.?: No Are you currently unemployed and looking for a job?: No Are you interested in more education?: No Please select the resources that you would like help with: None Currently or been in a relationship where the following occur: no concerns reported AUDIT C Alcohol Use Questionnaire (AUDIT-C) 1. How often do you have a drink containing alcohol?: Monthly or less 2. How many drinks containing alcohol do you have on a typical day when you are drinking?: 1 or 2 3. How often do you have six or more drinks on one occasion?: Never Total Score: 1 JELANI-7 AMB Questionnaire JELANI-7 Date JELANI - 7 assessed: 04/30/23 Feeling nervous, anxious, or on edge: 0 = Not at all Not being able to stop or control worryin = Not at all Worrying too much about different things: 0 = Not at all Trouble relaxin = Not at all Being so restless that it is hard to sit still: 0 = Not at all Becoming easily annoyed or irritable: 0 = Not at all Feeling afraid as if something awful might happen: 0 = Not at all Total JELANI-7 score (0-4 normal; 5-9 mild; 10-14 moderate; 15-21 severe): 0 Source: Developed by Cassidy Beard Kurt Kroenke and colleagues, with an educational jak from [employer]. JELANI-7 Assessment Billing JELANI-7 Assessment Tool: JELANI-7 Assessment 36061 Review of Systems Const Denies headache(s) Eyes Denies loss of vision ENT Denies vertigo, Denies dizziness, Denies headache(s) and Denies sore throat Card Denies chest pain, Denies leg edema and Denies lightheadedness Resp Denies cough, Denies hemoptysis and Denies wheezing GI Denies abdominal pain, Denies melena, Denies constipation, Denies diarrhea and Denies vomiting Denies dysuria, Denies urinary frequency and Denies urinary urgency Musc Denies arthralgias, Denies joint swelling, Denies numbness and Denies tingling Neuro Denies Abnormal speech present, Denies behavioral changes, Denies vertigo, Denies dizziness, Denies headache(s), Denies loss of vision, Denies memory loss, Denies numbness and Denies tingling Psych Denies anxiety, Denies behavioral changes, Denies depression, Denies memory loss and Denies panic attacks Trey/Lymph Denies easy bleeding and Denies easy bruising Aller/Immun Denies wheezing Physical exam (Primary Care) Vital Signs: Last Vital Signs Pulse 70 04/30/23 11:36 Resp 17 04/30/23 11:36 BP 122/80 04/30/23 11:36 Pulse Ox 97 04/30/23 11:36 Oxygen Delivery Method Room Air 04/30/23 11:36 BMI result Body Mass Index 40.3 BMI Assessment/Plan discussion: High Tobacco/Smoking Status: Tobacco use Status Tobacco use date assessed 04/30/23 04/30/23 11:43 Patient Tobacco Use Status Never used Tobacco 04/30/23 11:38 e-Cigarette/Vaping Use Never Used 04/30/23 11:38 PHQ-9: PHQ-9 Score PHQ-9: Total score 0 04/30/23 12:13 Depression Screening Interpretation: Negative Thrive Assessment: Date of Thrive Assessment Date Thrive assessed 04/30/23 04/30/23 11:43 Currently or been in a relationship where the following occur: no concerns reported Const Other: Obese General: healthy appearing, no acute distress, alert and awake Nutritional Appearance: well nourished Orientation/consciousness: oriented to person, oriented to place and oriented to time HENMT Ears: TM's normal bilaterally General nose exam: Normal nasal mucous membranes and turbinates present Eyes Conjunctivae: conjunctivae normal Sclerae: sclerae normal Pupils: Equal, round and reactive pupils present Neck Neck: Yes no lymphadenopathy and Yes no JVD Thyroid: Thyroid normal Carotids: no bruits Resp Effort & Inspection: normal respiratory effort and not tachypneic Auscultation: no crackles, no rales, no rhonchi and no wheezes Cardio Rate: regular rate Rhythm: regular rhythm Heart sounds: no murmurs and normal S1 and S2 GI Palpation (GI): Soft to palpation, nontender, no hepatomegaly and no splenomegaly Auscultation: normal bowel sounds Skin General skin exam: no rashes or lesions noted and dry skin Neuro General: oriented to person, oriented to place and oriented to time Cranial nerves: Yes Equal, round and reactive pupils present Speech: No Abnormal speech present Gait exam (Neuro): Normal gait present Motor exam (neuro): no tremor noted Extrem Right upper extremity: full ROM Left upper extremity: full ROM Right lower extremity: full ROM; no edema Left lower extremity: full ROM; no edema Psych Mental Status: mental status grossly normal Speech and movement: Normal speech and movement present Affect: normal affect Attitude: cooperative Thought process: Normal thought process present Results AMB Hemoglobin A1c AMB Hemoglobin A1c 5.4 % Last Edit by ROCKY Chao on 04/30/23 12:13 Results Reviewed Results Reviewed: Laboratory Last Values Hgb A1c (Clinic) 5.4 % (4.0-6.0) 04/30/23 12:13 Assessment and Plan Assessment & Plan (1) DMII (diabetes mellitus, type 2): Code(s): E11.9 - Type 2 diabetes mellitus without complications Qualifiers: Diabetes mellitus complication status: with hyperglycemia 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 Recent A1c of 5.5 from 7.3. He continues on Ozempic 0.5 mg weekly. Will reduce his metformin dose to a 1000 q.d. to reduce risk of hypoglycemia. Goal A1c is to continue to remain below 6.5 (2) HLD (hyperlipidemia): Code(s): E78.5 - Hyperlipidemia, unspecified Qualifiers: Hyperlipidemia type: mixed hyperlipidemia Qualified Code(s): E78.2 - Mixed hyperlipidemia Plan: Has started statin therapy without noted side effect. Goal LDL to be below 100 (3) Morbid obesity: Code(s): E66.01 - Morbid (severe) obesity due to excess calories Plan: Have noted weight loss since last office visit.. Will continue Ankit P 1 Patient does understand his BMI is well over 40 and will continue working on being more physically active and adapting to better eating habits to reduce his weight. Orders: Orders Microalbumin, Random (w Creat) 6 Months E11.65 - Type 2 diabetes mellitus with hyperglycemia Lipid Panel 6 Months E78.2 - Mixed hyperlipidemia AMB Hemoglobin A1c Today E11.9 - Type 2 diabetes mellitus without complications Comprehensive [place]. Panel Fast 6 Months E11.65 - Type 2 diabetes mellitus with hyperglycemia Complete Blood Count no Diff 6 Months E11.65 - Type 2 diabetes mellitus with hyperglycemia Medications: Changed From semaglutide (Ozempic) for 4 weeks 0.5 mg (0.736 mL) subcut QWEEK 4 weeks 3 mL 2RF E11.65 - Type 2 diabetes mellitus with hyperglycemia To semaglutide (Ozempic) 0.5 mg (0.736 mL) subcut QWEEK 4 weeks 3 mL 3RF E11.65 - Type 2 diabetes mellitus with hyperglycemia From metformin 1,000 mg PO BID 30 days 60 tabs 1RF R73.09 - Other abnormal glucose To metformin 1,000 mg PO DAILY 30 days 30 tabs 3RF R73.09 - Other abnormal glucose Coding Level of Care Code Est Pt Level 4 (24251) Diagnoses Type 2 diabetes mellitus with hyperglycemia, without long-term current use of insulin E11.65 Diabetes mellitus complication status: with hyperglycemia Diabetes mellitus skilled nursing insulin use: without intermodal truck driver use Mixed hyperlipidemia E78.2 Hyperlipidemia type: mixed hyperlipidemia Morbid obesity E66.01 Additional Codes JELANI-7 Assessment Billing - JELANI-7 Assessment Tool: JELANI-7 Assessment [id number] ([id number])
== END 2023-04-30 12:02 | disposition home or self-care (01) ==
PROVIDERS: PCP Physician Assistant; Visit Provider Physician Assistant
DX: E11.65 Type 2 diabetes mellitus with hyperglycemia (principal); E66.01 Morbid (severe) obesity due to excess calories; E11.69 Type 2 diabetes mellitus with other specified complication; Z68.41 Body mass index [BMI] 40.0-44.9, adult; E78.2 Mixed hyperlipidemia
CPT/HCPCS: 83036; 99214

== ENCOUNTER 2024-11-08 06:41 | Outpatient (REF) | payer BC, SELFPAY ==
[2024-11-08 07:23] LABS: Hematocrit 45.5 % (42.0-52.0); Hemoglobin 15.1 g/dl (14.0-18.0); Mean Corpuscular HGB Conc 33.2 g/dl (31.0-36.0); Mean Corpuscular Hemoglobin 27.8 pg (27.0-33.0); Mean Corpuscular Volume 83.8 fL (80.0-98.0); NRBC Abs Auto 0.000 X10*3/uL (0.0-0.012); NRBC Pct Auto 0.0 /100WBC (0.0-0.2); Platelet Count 313 X10*3/uL (160-400); Red Blood Count 5.43 X10*6/uL (4.60-5.80); White Blood Count 8.0 X10*3/uL (4.8-10.8)
[2024-11-08 07:53] LABS: Alanine Aminotransferase 26 U/L (0-40); Albumin Level 4.3 g/dL (3.5-5.0); Alkaline Phosphatase 86 U/L (39-117); Anion Gap 12 (12-20); Aspartate Amino Transferase 16 U/L (5-37); Blood Urea Nitrogen 24 mg/dL (9-16); Calcium 9.3 mg/dL (8.4-10.2); Carbon Dioxide 27 mmol/L (22-29); Chloride 107 mmol/L (96-108); Cholesterol 224 mg/dL (<200); Estimated Glomerular Filt Rate > 60; HDL Cholesterol 38 mg/dL (>40); Potassium 4.8 mmol/L (3.3-5.1); Sodium 141 mmol/L (135-145); Total Protein 8.0 g/dL (6.5-8.0); Triglycerides 94 mg/dL (<150)
[2024-11-08 08:51] LABS: Microalbum/Creatinine Ratio Ur 5.9 ug/mg cr (<30)
== END 2024-11-08 06:42 | disposition home or self-care (01) ==
LOC: HO.LAB 06:41
PROVIDERS: PCP Physician Assistant; Visit Provider Physician Assistant
DX: Z00.00 Encounter for general adult medical examination without abnormal findings (principal); E11.65 Type 2 diabetes mellitus with hyperglycemia; I10 Essential (primary) hypertension; E78.2 Mixed hyperlipidemia; M79.10 Myalgia, unspecified site; R07.81 Pleurodynia; R06.02 Shortness of breath; E66.813 Obesity, class 3; Z68.41 Body mass index [BMI] 40.0-44.9, adult; G47.33 Obstructive sleep apnea (adult) (pediatric); Z79.899 Other long term (current) drug therapy; Z13.31 Encounter for screening for depression; Z13.39 Encounter for screening examination for other mental health and behavioral disorders
CPT/HCPCS: 36415; 80053; 80061; 82043; 82570; 83036; 85027; 96127

== ENCOUNTER 2024-11-08 14:39 | Outpatient (AMB) | payer BC, SELFPAY ==
--- NOTE | 2024-11-08 14:46 | MHC.PC.OV ---
Vital Signs 11/08/24 14:47 Height 6 ft 1 in Weight 333 lb 8 oz BMI 44.0 BP 132/72 Blood Pressure Location Lt brachial Position Sitting Pulse 72 Pulse Source Pulse Oximeter Temp 97.1 F Temp Source Temporal Artery Scan Pulse Oximetry (%) 96 Oxygen Delivery Method Room Air Intake Visit Reasons: PE R/S from 11/03/24 Intake Note: Patient is here today for a physical. Decontamination Worker Required: No Grinder Operator: Not Required per policy Accompanied by: Self / Same As Patient Allergies hydrochlorothiazide Adverse Reaction (Intermediate, Verified 11/08/24 15:00) Dizziness Medication List - Last Reconciled 11/08/24 by Demar Guzman PA-C atorvastatin 10 mg PO BEDTIME 90 days ibuprofen 600 mg PO Q8H PRN lisinopril 10 mg PO DAILY metformin 1,000 mg PO DAILY 30 days semaglutide (Ozempic) 1 mg (0.75 mL) subcut QWEEK 4 weeks Tobacco use date assessed: 11/08/24 Dental Screening Dental Screen Date: 11/08/24 Did you have a dental visit in the last 12 months?: Yes Did you have a dental problem in the last 6 months where you did not have access to dental care?: No Was dental information given to patient?: Patient has dentist HPI PE R/S from 11/03/24 HPI Details Patient is a 44-year-old male here today for annual physical. Patient's past medical history significant for obesity, borderline high cholesterol, hyperlipidemia . Concern--> The patient reports experiencing chest pain, described as left-sided discomfort that worsens with deep breathing. He has a history of similar episodes, which he attributes to stress, but is concerned about the possibility of cardiac involvement. He also reports bilateral leg pain, particularly after physical activity, and notes a recent incident during a volleyball game where he experienced a popping sensation in his foot. The pain is exacerbated by inactivity and is accompanied by fatigue and loss of energy. Type 2 diabetes: Most recent labs showing elevated fasting blood sugar and A1c. He has gained weight. He has not been consistent with his diabetes medications. He is gained weight since last office visit. He has been making lifestyle changes more physically active. . Hyperlipidemia: Most recent lipid panel showing elevation in his total cholesterol and LDL. Again has not been consistent with taking his cholesterol medication.. .. Hypertension: Blood pressure acceptable today in office. Continues on lisinopril 5 mg with good affect on his blood pressure.. Vaccine: needs Tdap, UTD COVID, declines flu vaccine .. Colorectal cancer screening: willing to do colonoscopy Laboratory Tests 04/29/23 11/08/24 11/08/24 06:14 06:46 06:50 Fasting Glucose 96 181 H LDL Cholesterol, C alc 116 H 168 H Cholesterol 224 H Urine Microalbumin 11.0 PFSH Medical History Morbid obesity Surgical History No pertinent past surgical history Family History (Updated 11/08/24 @ 15:08 by Demar Guzman PA-C) Father Hyperlipidemia Mother Hypertension Hyperlipidemia Mother Hypertension Hyperlipidemia Son No problems noted. Daughter No problems noted. Daughter No problems noted. Daughter No problems noted. 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 1. Little interest or pleasure in doing things: not at all 2. Feeling down, depressed, or hopeless: not at all 3. Trouble falling or staying asleep, or sleeping too much: not at all 4. Feeling tired or having little energy: more than half the days 5. Poor appetite or overeating: several days 6. Feeling bad about yourself - or that you are a failure or have let yourself or your family down: several days 7. Trouble concentrating on things, such as reading the newspaper or watching television: several days 8. Moving or speaking so slowly that other people could have noticed. Or the opposite - being so fidgety or restless that you have been moving around a lot more than usual: not at all 9. Thoughts that you would be better off or of hurting yourself in some way: not at all Total score: 5 Depression Screening Interpretation: Positive Depression Screening Done: Yes 77405 - PHQ-9 Billing: Yes Source: Developed by Drs. Ivan Gray, Cassidy Nolan, Redd Issa and colleagues, with an educational jak from [employer]. Thrive Questionnaire Date Thrive assessed: 11/08/24 I am a: Patient What is your living situation today?: I have a steady place to live Within the past 12 months, did the food you bought not last and you didn't have the money to get more?: Never true Within the past 12 months, did you worry whether your food would run out before you got money to buy more?: Never true Do you have trouble paying for medicines?: No Do you have trouble getting transportation to medical appointments?: No Do you have trouble paying your heating and electricity bill?: No Do you have trouble taking care of your child, family member or friend?: No Do you have trouble with day-to-day activities such as bathing, preparing meals, shopping, managing finances, etc.?: No Are you currently unemployed and looking for a job?: No Are you interested in more education?: No Please select the resources that you would like help with: None Currently or been in a relationship where the following occur: No concerns reported THRIVE Score: 0 AUDIT C Alcohol Use Questionnaire (AUDIT-C) 1. How often do you have a drink containing alcohol?: 4 or more times a week 2. How many drinks containing alcohol do you have on a typical day when you are drinking?: 1 or 2 3. How often do you have six or more drinks on one occasion?: Less than monthly Total Score: 5 JELANI-7 AMB Questionnaire JELANI-7 Date JELANI - 7 assessed: 11/08/24 Feeling nervous, anxious, or on edge: 1 = Several days Not being able to stop or control worryin = Not at all Worrying too much about different things: 1 = Several days Trouble relaxin = Not at all Being so restless that it is hard to sit still: 0 = Not at all Becoming easily annoyed or irritable: 1 = Several days Feeling afraid as if something awful might happen: 0 = Not at all Total JELANI-7 score (0-4 normal; 5-9 mild; 10-14 moderate; 15-21 severe): 3 Source: Developed by Drs. Ivan Gray, Cassidy Nolan, Redd Issa and colleagues, with an educational jak from [employer]. JELANI-7 Assessment Billing JELANI-7 Assessment Tool: JELANI-7 Assessment 18877 Review of Systems Const Denies body aches, Denies chills, Denies excessive sweating, Reports fatigue, Denies fever(s) and Denies headache(s) Eyes Denies blurry vision ENT Denies dysphagia, Denies vertigo, Denies dizziness, Denies headache(s), Denies hearing loss and Denies tinnitus Card Reports chest pain, Denies chest pain with activity, Denies syncope, Denies irregular heart rhythm, Denies dyspnea and Reports dyspnea on exertion Resp Denies chest congestion, Denies cough, Denies hemoptysis, Denies dyspnea, Reports dyspnea on exertion and Denies wheezing GI Denies abdominal pain, Denies melena, Denies hematochezia, Denies coffee ground emesis, Denies dysphagia, Denies diarrhea, Denies nausea and Denies vomiting Denies difficulty urinating, Denies dysuria, Denies urinary frequency, Denies urinary hesitancy and Denies urinary urgency Musc Denies arthralgias, Denies limited range of motion, Denies muscle cramps and Denies muscle weakness Skin/Breast Denies rash and Denies skin ulcer Neuro Denies Abnormal speech present, Denies confusion, Denies vertigo, Denies dizziness, Denies syncope, Denies headache(s), Denies memory loss and Denies seizure-like activity Psych Denies anxiety, Denies confusion, Denies depression, Denies memory loss, Denies panic attacks and Denies paranoia Endo Denies excessive sweating, Reports fatigue, Denies flushing, Denies polydipsia and Denies polyuria Aller/Immun Denies wheezing Physical exam (Primary Care) Vital Signs: Last Vital Signs Temp 97.1 F 11/08/24 14:47 Pulse 72 11/08/24 14:47 BP 132/72 11/08/24 14:47 Pulse Ox 96 11/08/24 14:47 Oxygen Delivery Method Room Air 11/08/24 14:47 BMI result Body Mass Index 44.0 BMI Assessment/Plan discussion: High BMI High, discussed plan: lifestyle, weight reduction, dietary and physical activity Tobacco/Smoking Status: Tobacco use Status Tobacco use date assessed 11/08/24 11/08/24 14:54 Patient Tobacco Use Status Never used Tobacco 11/08/24 15:08 e-Cigarette/Vaping Use Never Used 11/08/24 15:08 PHQ-9: PHQ-9 Score PHQ-9: Total score 5 11/08/24 15:12 Depression Screening Interpretation: Positive Thrive Assessment: Date of Thrive Assessment Date Thrive assessed 11/08/24 11/08/24 14:54 Currently or been in a relationship where the following occur: No concerns reported Const Other: Obese General: cooperative, comfortable, no acute distress, alert and awake; No confusion Orientation/consciousness: oriented to person, oriented to place, patient oriented x3 and No confusion HENMT Head: Yes normocephalic Ears: external ears normal and TM's normal bilaterally Face and sinus: No sinus tenderness Mouth: Normal oral and palatal mucosa present and tongue normal Teeth and gingiva: dentition normal and gingiva normal Throat: Yes posterior oropharynx normal, Yes tonsils normal and Yes uvula midline Eyes Conjunctivae: conjunctivae normal Sclerae: sclerae normal Pupils: Equal, round and reactive pupils present EOM: EOMs intact bilaterally Direct Ophthalmoscopy: No no photophobia Neck Neck: Yes no lymphadenopathy, No tender and Yes no JVD Thyroid: Thyroid normal Carotids: no bruits Chest Chest palpation & inspection: no tenderness Resp Effort & Inspection: normal respiratory effort, no audible wheezes, not labored and no stridor Auscultation: no crackles, no rales, no rhonchi and no wheezes Cardio Jugular venous distension: no JVD Rate: regular rate, not bradycardic and not tachycardic Rhythm: regular rhythm Bruits: no carotid bruits Peripheral pulses: Peripheral pulses 2+ throughout GI Inspection: Yes normal to inspection, No abdominal wall ecchymosis and No visible herniation Palpation (GI): Soft to palpation, nontender, no guarding, not rigid and No hepatosplenomegaly present Auscultation: normoactive bowel sounds General: Yes no CVA tenderness Back/Spine/Pelvis Back: no CVA tenderness and No back tenderness Cervical Spine: cervical ROM normal Thoracic/Lumbar Spine: thoracic and lumbar spine normal to inspection, straight leg raise negative bilaterally, No thoraco-lumbar ROM limited and No lumbar spinal tenderness Skin Lesions: no lesions Rashes: no rashes Wounds: no wounds Neuro General: oriented to person, oriented to place, patient oriented x3, CN's II-XI intact bilaterally and No confusion Cranial nerves: Yes Equal, round and reactive pupils present and Yes Normal accommodation reflex present Cognition (Neuro): normal cognition Speech: No Abnormal speech present Gait exam (Neuro): Normal gait present Motor exam (neuro): 5/5 motor strength present throughout Extrem Right upper extremity: full ROM; no cyanosis Left upper extremity: full ROM; no cyanosis Right lower extremity: no edema Left lower extremity: no edema Psych Appearance: grossly normal Mental Status: mental status grossly normal Affect: normal affect Attitude: cooperative Thought process: Normal thought process present Results AMB Hemoglobin A1c AMB Hemoglobin A1c 8.0 % Last Edit by RACHID Ward on 11/08/24 14:59 Results Reviewed Results Reviewed: Laboratory Last Values Hgb A1c (Clinic) 8.0 % (4.0-6.0) H 11/08/24 14:46 Coding Level of Care Code Est Pt Prev Care 40-64y(29891) Diagnoses Annual physical exam Z00.00 Type 2 diabetes mellitus with hyperglycemia, without long-term current use of insulin E11.65 Diabetes mellitus jail insulin use: without jail use Diabetes mellitus complication status: with hyperglycemia Primary hypertension I10 Hypertension type: primary hypertension Mixed hyperlipidemia E78.2 Hyperlipidemia type: mixed hyperlipidemia Myalgia M79.10 Pleurodynia R07.81 Chest pain type: pleurodynia SOBOE (shortness of breath on exertion) R06.02 Colon cancer screening Z12.11 Class 3 obesity E66.813 SHONA (obstructive sleep apnea) G47.33 Additional Codes PHQ-9 - 30267 - PHQ-9 Billing: Yes ([id number]) JELANI-7 Assessment Billing - JELANI-7 Assessment Tool: JELANI-7 Assessment [id number] ([id number]) Assessment & Plan Assessment & Plan (1) Annual physical exam: Code(s): Z00.00 - Encounter for general adult medical examination without abnormal findings Category: Medical Plan: As per HPI (2) DMII (diabetes mellitus, type 2): Code(s): E11.9 - Type 2 diabetes mellitus without complications Category: Medical Qualifiers: Diabetes mellitus bed bug exterminator insulin use: without bed bug exterminator use Diabetes mellitus complication status: with hyperglycemia Qualified Code(s): E11.65 - Type 2 diabetes mellitus with hyperglycemia Plan: The patient's diabetes is currently poorly controlled with an A1c of 8.0. He is advised to improve medication adherence, particularly with Ozempic, and to consider switching to Tirzepatide for better glycemic control. Follow-up fasting labs are recommended to monitor progress. (3) HTN (hypertension): Code(s): I10 - Essential (primary) hypertension Category: Medical Qualifiers: Hypertension type: primary hypertension Qualified Code(s): I10 - Essential (primary) hypertension Plan: Patient's blood pressure acceptable today in office. Will continue him on his current dose of lisinopril 10 mg with goal blood pressure to remain below 140/90. (4) HLD (hyperlipidemia): Code(s): E78.5 - Hyperlipidemia, unspecified Category: Medical Qualifiers: Hyperlipidemia type: mixed hyperlipidemia Qualified Code(s): E78.2 - Mixed hyperlipidemia Plan: Most recent lipid panel showing elevated total cholesterol and LDL. Advised on being more consistent on daily use of his atorvastatin. He does report having myalgias/like muscular pain and cramping which is unclear related to statin therapy. Otherwise to reduce his cardiovascular risk advised on taking atorvastatin consistently with goal LDL to be below 100 (5) Myalgia: Code(s): M79.10 - Myalgia, unspecified site Category: Medical Plan: Will supply patient with magnesium as it has helped him with his leg muscle cramps and pain in the past. (6) Chest pain: Code(s): R07.9 - Chest pain, unspecified Category: Medical Qualifiers: Chest pain type: pleurodynia Qualified Code(s): R07.81 - Pleurodynia Plan: Unclear etiology to patient's atypical chest pain though does have a pleurisy component. The patient reports chest pain, which may be stress-related but requires further evaluation. A cardiac stress test and chest x-ray are recommended to rule out cardiac causes. (7) SOBOE (shortness of breath on exertion): Code(s): R06.02 - Shortness of breath Category: Medical Plan: Due to patient's shortness of breath again will try for cardiac stress testing due to his symptoms and increased cardiovascular risk secondary to his comorbidities. (8) Colon cancer screening: Code(s): Z12.11 - Encounter for screening for malignant neoplasm of colon Category: Medical Plan: Patient willing to do colonoscopy (9) Class 3 obesity: Code(s): E66.813 - Obesity, class 3 Category: Medical Plan: Patient does understand his BMI is over 40 and will work on being more physically active and adapting to better eating habits to reduce his weight (10) SHONA (obstructive sleep apnea): Code(s): G47.33 - Obstructive sleep apnea (adult) (pediatric) Category: Medical Plan: The patient has a history of sleep apnea and was previously recommended CPAP therapy. A repeat sleep study is suggested to reassess the condition and adjust treatment as necessary. Uncontrolled sleep apnea could be reason for his fatigue . Orders: Orders CA stress test 11/08/24 R07.9 - Chest pain, unspecified Complete Blood Count no Diff 3 Months E11.65 - Type 2 diabetes mellitus with hyperglycemia AMB Hemoglobin A1c 11/08/24 E11.65 - Type 2 diabetes mellitus with hyperglycemia XR chest 2V 11/08/24 R06.02 - Shortness of breath RT home sleep study 11/08/24 G47.33 - Obstructive sleep apnea (adult) (pediatric) Testosterone, Free/Total 11/08/24 E66.01 - Morbid (severe) obesity due to excess calories Lipid Panel 3 Months E78.5 - Hyperlipidemia, unspecified Comprehensive [place]. Panel Fast 3 Months E11.65 - Type 2 diabetes mellitus with hyperglycemia Referrals Ophthalmology Referral E11.65 - Type 2 diabetes mellitus with hyperglycemia Gastroenterology Referral Z12.11 - Encounter for screening for malignant neoplasm of colon Medications: New magnesium oxide 400 mg PO DAILY 90 caps 1RF 90 days M79.10 - Myalgia, unspecified site tirzepatide (Mounjaro) for 4 weeks 2.5 mg (0.5 mL) subcut QWEEK 2 mL 1RF 4 weeks E11.65 - Type 2 diabetes mellitus with hyperglycemia Refilled atorvastatin 10 mg PO BEDTIME 90 tabs 2RF 90 days E78.5 - Hyperlipidemia, unspecified lisinopril 10 mg PO DAILY 30 tabs 1RF I10 - Essential (primary) hypertension Discontinued semaglutide (Ozempic) Discontinued Reason: Doctor's Order 1 mg (0.75 mL) subcut QWEEK 4 weeks 3 mL 3RF E11.65 - Type 2 diabetes mellitus with hyperglycemia Patient Instructions: Goal: A1c to be below 7.0, blood pressure to remain below 140/90 Barriers: Adherence to physical activity and healthy eating habits
[2024-11-08 14:47] VITALS: BP 132/72; PULSE 72; TEMP 36.2; O2SAT 96; BMI 44.0
== END 2024-11-08 15:40 | disposition home or self-care (01) ==
LOC: HO.HMCH 14:40
PROVIDERS: PCP Physician Assistant; Visit Provider Physician Assistant
DX: Z00.00 Encounter for general adult medical examination without abnormal findings (principal); E11.65 Type 2 diabetes mellitus with hyperglycemia; E66.813 Obesity, class 3; Z68.41 Body mass index [BMI] 40.0-44.9, adult; I10 Essential (primary) hypertension; E78.2 Mixed hyperlipidemia; R07.81 Pleurodynia; R06.02 Shortness of breath; Z12.11 Encounter for screening for malignant neoplasm of colon; G47.33 Obstructive sleep apnea (adult) (pediatric); M79.10 Myalgia, unspecified site

== ENCOUNTER → 2024-11-15 13:18 | Outpatient (BNVA) | payer OTHER, SELFPAY | PROVIDERS: PCP Physician Assistant; Visit Provider Physician Assistant Medical | DX: S86.012A Strain of left Achilles tendon, initial encounter (principal); X50.0XXA Overexertion from strenuous movement or load, initial encounter | CPT/HCPCS: 29515; 73630; 99203 ==

== ENCOUNTER 2024-11-21 09:31 | Outpatient (AMB) | payer OTHER, SELFPAY ==
--- NOTE | 2024-11-21 09:58 | MHC.OFFVIS ---
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 States within an hour his pain was radiating up his leg. He was seen at [facility] and was placed in splint. He removed splint on the 3rd day due to increase pain and bruising his calf. He has been out of work since his injury. He has ongoing pain in his achilles area and soreness in his calf. Finds support with use of merly wrap. 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 He states he was moving a patient, his foot was planted and upon pushing down he felt a sharp pain at the bottom off foot to his heel. He was seen at the work connection where he was placed in a posterior splint and referred to our office for ortho eval. He has been out of work since the date of injury. [facility] Medical History Morbid obesity Surgical History No pertinent past surgical history Family History (Updated 11/08/24 @ 15:08 by Demar Guzman PA-C) Father Hyperlipidemia Mother Hypertension Hyperlipidemia Mother Hypertension Hyperlipidemia Son No problems noted. Daughter No problems noted. Daughter No problems noted. Daughter No problems noted. 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 Negative Johnston's. He does have pain along the lateral aspect of the Achilles with some notable swelling. He is able to plantar and dorsiflex. Neurovascularly intact. Assessment & Plan Assessment & Plan (1) Strain of left Achilles tendon: Code(s): S86.012A - Strain of left Achilles tendon, initial encounter Category: Medical Plan: It is likely he may have some partial tearing of the Achilles tendon however there is no complete tear warranting surgery. I did place him in a tall boot weightbearing as tolerated with 2 supportive wedges. This will help take the load off the Achilles and aid in healing. I also placed a referral for physical therapy to work on gait training and stretching/strengthening exercises. He can wean out of the wedges 1 per week. I also placed an MRI of the left Achilles so we can further evaluate the extent of the injury for further planning. The patient is content with this plan and will remain out of work until I see him back in 4 weeks. Orders: Orders MR ankle LT wo con Today S86.012A - Strain of left Achilles tendon, initial encounter Coding Level of Care Code New Pt Level 3 (23144) Complex EM visit Add On G2211 Diagnoses Strain of left Achilles tendon S86.012A
[2024-11-21 10:08] VITALS: BMI 43.9
== END 2024-11-21 10:38 | disposition home or self-care (01) ==
LOC: HO.HOS 09:32
PROVIDERS: PCP Physician Assistant; Visit Provider Physician Assistant
DX: S86.012A Strain of left Achilles tendon, initial encounter (principal)
CPT/HCPCS: 99203; G2211

== ENCOUNTER → 2024-11-21 09:31 | Outpatient (BNVA) | payer OTHER, SELFPAY | PROVIDERS: PCP Physician Assistant; Visit Provider Physician Assistant | DX: S86.012A Strain of left Achilles tendon, initial encounter (principal) | CPT/HCPCS: 99202 ==

== ENCOUNTER → 2024-11-27 18:33 | Outpatient (BNV) | payer OTHER, SELFPAY | PROVIDERS: PCP Physician Assistant; Visit Provider Radiology Diagnostic Radiology | DX: M71.572 Other bursitis, not elsewhere classified, left ankle and foot (principal) | CPT/HCPCS: 73721 ==

== ENCOUNTER 2024-11-27 18:34 | Outpatient (REF) | payer OTHER, SELFPAY ==
--- NOTE | ~2024-11-27 | MR_ITS ---
CLINICAL HISTORY: S86.012A - Strain of left Achilles tendon, initial encounter Exam: MRI of the left ankle without intravenous contrast. Comparison: Left foot radiographs November 15, 2024. Findings: The Achilles tendon is intact. Peritendinous edema along the distal achilles tendon without signal alteration within the fibers of the Achilles tendon. There is a moderate-sized posterior calcaneal spur. There is exuberant bone marrow edema involving the posterior and superior aspect of the calcaneus, most pronounced along the lateral aspect near the Achilles tendon insertion site. No discrete fracture is seen. There is a 1.5 x 1.4 cm fluid collection within the retrocalcaneal bursa with diffuse edema throughout Kager's fat pad. Anterior tendons, medial tendons, and peroneal tendons are intact without tear or tendinopathy. Tibiofibular ligaments, talofibular ligaments, calcaneofibular ligament, deltoid ligament, and spring ligaments are intact. There is a small plantar calcaneal spur. This increased signal intensity within the proximal fibers of the medial slip of the plantar fascia without complete disruption of the fibers. Impression: 1. Prominent peritendinitis of the distal Achilles tendon without Achilles tendon tear. 2. Likely acute on chronic traction change of the Achilles tendon upon the posterior calcaneus with exuberant bone marrow edema. 3. Retrocalcaneal bursitis. 4. Acute on chronic plantar fasciitis involving the medial slip. This document has been electronically signed by: Julio Gonzalez MD on 11/30/2024 08:25:07
== END 2024-11-27 18:35 | disposition home or self-care (01) ==
LOC: HO.MRI 18:34
PROVIDERS: PCP Physician Assistant; Visit Provider Physician Assistant
DX: S86.012A Strain of left Achilles tendon, initial encounter (principal)
CPT/HCPCS: 73721

== ENCOUNTER 2024-12-22 08:30 | Outpatient (AMB) | payer OTHER, SELFPAY ==
[2024-12-22 08:37] VITALS: BMI 43.9
--- NOTE | 2024-12-22 08:37 | MHC.OFFVIS ---
Vital Signs 12/22/24 08:37 Height 6 ft 1 in Weight 333 lb BMI 43.9 Intake Visit Reasons: OV-4wk f/u left achilles strain Intake Note: Dalton is a 44 year old male who presents today for a follow up of a workers comp injury to left achilles, DOI 11/15/24. At his last visit patient was placed in a tall walking boot with 2 wedges, weaning out 1 per week. He was referred to physical therapy, MRI ordered, and instructed to follow up in 4 weeks. Patient reports he has D/C using his boot due to feeling discomfort. He explains he feels very minor pain when pushing off to step up on stairs. Current work restrictions: remain out of work until follow up on 12/22/24 Impression: MRI 1. Prominent peritendinitis of the distal Achilles tendon without Achilles tendon tear. 2. Likely acute on chronic traction change of the Achilles tendon upon the posterior calcaneus with exuberant bone marrow edema. 3. Retrocalcaneal bursitis. 4. Acute on chronic plantar fasciitis involving the medial slip. Allergies hydrochlorothiazide Adverse Reaction (Intermediate, Verified 12/22/24 08:44) Dizziness Medication List - Last Reconciled 12/22/24 by Eladia Gonzáles PA-C atorvastatin 10 mg PO BEDTIME 90 days cyclobenzaprine 5 mg PO TID ibuprofen 800 mg PO TID PRN lisinopril 10 mg PO DAILY magnesium oxide 400 mg PO DAILY 90 days metformin 1,000 mg PO DAILY 30 days tirzepatide (Mounjaro) 2.5 mg (0.5 mL) subcut QWEEK 4 weeks Held on 12/12/24. Instructions: Doctor's Order tirzepatide (Mounjaro) 5 mg (0.5 mL) subcut QWEEK 4 weeks HPI HPI OV-4wk f/u left achilles strain: Details: 44 yo male returns to the office today f/u Left achilles tendon injury. He states he goes to PT about 2x a week. He d/c the boot, states there is some soreness along the Achilles but is able to walk better without the boot. He denies swelling or sharp shooting pain. He remains out of work. [facility] Medical History Morbid obesity Surgical History No pertinent past surgical history Family History (Updated 11/08/24 @ 15:08 by Demar Guzman PA-C) Father Hyperlipidemia Mother Hypertension Hyperlipidemia Mother Hypertension Hyperlipidemia Son No problems noted. Daughter No problems noted. Daughter No problems noted. Daughter No problems noted. 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 He has no tenderness over the Achilles tendon. Mild discomfort along the peroneal tendon. He has full range of motion and is able to activate strength against resistance with inversion eversion, plantar and dorsiflexion without pain. Neurovascularly intact. Assessment & Plan Assessment & Plan (1) Strain of left Achilles tendon: Code(s): S86.012A - Strain of left Achilles tendon, initial encounter Category: Medical Plan: Patient will continue to work with physical therapy for gradual strengthening conditioning exercises. He will return to work on 01/02/2025 sedentary work only. He was fit for an ankle support brace today to use for additional support and he will see us back in 6 weeks for re-evaluation, sooner if needed. Coding Level of Care Code Est Pt Level 3 (20179) Complex EM visit Add On G2211 Diagnoses Strain of left Achilles tendon S86.012A
== END 2024-12-22 09:07 | disposition home or self-care (01) ==
LOC: HO.HOS 08:31
PROVIDERS: PCP Physician Assistant; Visit Provider Physician Assistant
DX: S86.012A Strain of left Achilles tendon, initial encounter (principal)
CPT/HCPCS: 99213; G2211

== ENCOUNTER → 2024-12-22 08:30 | Outpatient (BNVA) | payer OTHER, SELFPAY | PROVIDERS: PCP Physician Assistant; Visit Provider Physician Assistant | DX: S86.012A Strain of left Achilles tendon, initial encounter (principal); X58.XXXA Exposure to other specified factors, initial encounter; Y93.9 Activity, unspecified; Y92.9 Unspecified place or not applicable; Y99.0 Civilian activity done for income or pay | CPT/HCPCS: 99212 ==

== ENCOUNTER 2025-01-18 07:47 | Outpatient (RCR) | payer OTHER, BC, SELFPAY ==
--- NOTE | 2024-12-08 15:20 | MHC.PT.EP ---
[facility] [place] Office [place] Office [place] Office [address] [phone] F: [phone] F: [phone] F: [phone] F: [phone] Physical Therapy Plan of Care Date of Evaluation: 12/08/24 Date of Surgery: Diagnosis: Strain of LEFT achilles tendon (RS) Assessment: Dalton Chang (:[birth year]) is a 44 y.o. 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 He is referred to PT for worker's compensation injury by Eladia Gonzáles PA-C of [facility] with Dx of Strain of LEFT achilles tendon. Patient impairments include L ankle/foot pain, limited L ankle ROM, weakness L ankle, antalgic gait. Patient current functional limitations are walking, going up/down hills, stairs, squats, work tasks (vault clerk). Patient will benefit from skilled PT to address aforementioned impairments and functional limitations to meet established goals. Frequency and Duration: The patient will be seen 2x/week for 6 weeks Short Term Goals: 3 weeks Dalton is able to slowly and safely wean off tall walking boot and into regular shoe without gait compensation. Dalton presents with increased L ankle DF DU 0 degrees to be able to ambulate heel to toe gait pattern on level surfaces. Personal Development Mentor Goals: 6 weeks Dalton presents with increased L ankle DF 5 degrees to be able to walk up/down hills and driveway without symptoms. Dalton presents with increased L ankle strength PF 4+/5 to be able to squat and lift 20# for work tasks. Treatment Plan: Modalities to reduce pain, spasms and effusion. Manual therapy to restore motion and function. Therapeutic exercise to improve strength and flexibility. Neuromuscular re-education for posture and balance. Therapeutic activities to return to functional activities of daily living. Electronically signed by: Julito Zapata, PT, DPT Please sign and return to therapist. Thank you for your referral.
--- NOTE | 2025-02-22 08:25 | MHC.PT.DC ---
[facility] [place] Office [place] Office [place] Office [address] [phone] F: [phone] F: [phone] F: [phone] F: [phone] Physical Therapy Discharge Report Diagnosis: Strain of LEFT achilles tendon (RS) Date of Surgery: DOI 11/15 Date of Evaluation: 12/08/24 Date of Discharge: 02/22/25 Treatments to Date: 9 Cancellations to Date: 1 No Shows to Date: 2 Discharge Status: Patient Elected to Stop Discharge Summary: Dalton attended 9 PT visits and then d/c himself from PT as he was cleared to return back to work. Electronically signed by: Sadnhya Lance, PT DPT Please sign and return to therapist. Thank you for your referral.
== END 2025-02-22 08:25 | disposition home or self-care (01) ==
LOC: HO.PT 07:47
PROVIDERS: PCP Physician Assistant; Visit Provider Physician Assistant
DX: S86.012D Strain of left Achilles tendon, subsequent encounter (principal); X58.XXXD Exposure to other specified factors, subsequent encounter
CPT/HCPCS: 97035; 97110; 97140; 97161; 97530

== ENCOUNTER 2025-02-02 08:37 | Outpatient (AMB) | payer OTHER, SELFPAY ==
--- NOTE | 2025-02-02 08:42 | A.OFFVIS_ITS ---
Vital Signs 02/02/25 08:54 Height 6 ft 1 in Weight 333 lb BMI 43.9 Intake Visit Reasons: OV-6wk f/u Left achilles tendon tdrain Intake Note: Dalotn is a 44 year old male who presents today for a follow up of a workers comp injury to left achilles, DOI 11/15/24. At his last visit he was instructed to continue working with physical therapy. He was fit for a ankle support brace and instructed to follow up in 6 weeks. Today patient reports he is doing well, with no concerns. He does mention only discomfort he had was with the cold weather. He is scheduled for physical therapy for next week however he does not feel this is necessary, as he has been doing well, no concerns. He would like to discuss returning to work with no restrictions. Allergies hydrochlorothiazide Adverse Reaction (Intermediate, Verified 02/02/25 08:58) Dizziness Medication List - Last Reconciled 02/02/25 by Eladia Gonzáles PA-C atorvastatin 10 mg PO BEDTIME 90 days cyclobenzaprine 5 mg PO TID ibuprofen 800 mg PO TID PRN lisinopril 10 mg PO DAILY magnesium oxide 400 mg PO DAILY 90 days metformin 1,000 mg PO DAILY 30 days tirzepatide (Mounjaro) 2.5 mg (0.5 mL) subcut QWEEK 4 weeks Held on 12/12/24. Instructions: Doctor's Order tirzepatide (Mounjaro) 5 mg (0.5 mL) subcut QWEEK 4 weeks HPI HPI OV-6wk f/u Left achilles tendon tdrain: Details: 44-year-old gentleman returns to the office today follow-up left Achilles tendon strain date of injury 11/15/2024. Since his last visit he continue to work with physical therapy which has improved his symptoms. He denies pain or any discomfort with push-off. [facility] Medical History Morbid obesity Surgical History No pertinent past surgical history Family History (Updated 11/08/24 @ 15:08 by Demar Guzman PA-C) Father Hyperlipidemia Mother Hypertension Hyperlipidemia Mother Hypertension Hyperlipidemia Son No problems noted. Daughter No problems noted. Daughter No problems noted. Daughter No problems noted. 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 He has no tenderness over the Achilles tendon. No pain along the peroneal tendon. He has full range of motion and is able to activate strength against resistance with inversion eversion, plantar and dorsiflexion without pain. Neurovascularly intact. Assessment & Plan Assessment & Plan (1) Strain of left Achilles tendon: Code(s): S86.012A - Strain of left Achilles tendon, initial encounter Category: Medical Plan: Patient is doing well and is asymptomatic with activities. At this point I feel he can return to work without limitations. He will continue with his home exercise program. If symptoms arise or there is any concerns he will contact our office otherwise follow up as needed. Coding Level of Care Code Est Pt Level 3 (06407) Complex EM visit Add On G2211 Diagnoses Strain of left Achilles tendon S86.012A
[2025-02-02 08:54] VITALS: BMI 43.9
== END 2025-02-02 10:46 | disposition home or self-care (01) ==
LOC: HO.HOS 08:37
PROVIDERS: PCP Physician Assistant; Visit Provider Physician Assistant
DX: S86.012A Strain of left Achilles tendon, initial encounter (principal)
CPT/HCPCS: 99213; G2211

== ENCOUNTER → 2025-02-02 08:37 | Outpatient (BNVA) | payer OTHER, SELFPAY | PROVIDERS: PCP Physician Assistant; Visit Provider Physician Assistant | DX: S86.012A Strain of left Achilles tendon, initial encounter (principal) | CPT/HCPCS: 99212 ==